=== PATIENT | female | born 1955 | race Caucasian/White ===

== ENCOUNTER → 2016-10-05 | Outpatient (CLI) | payer OTHER ==
[~2016-10-05] VITALS: Ht 167.6 cm; Wt 81.8 kg
[~2016-10-05] MED LIST: CITRACAL + D C1 EACH PO; CRESTOR20 MG PO; CRESTOR40 MG PO; DULCOLAX10 MG PR; DULERA 100 MCG/13 GM IH; FISH OIL300 MG PO; FOLTX TABLET1 EAC1 PO; LO-DOSE ASPIRIN81 M2 PO; LOPRESSOR25 MG PO; LOVENOX40 MG/0.4 SC; Milk Of Magnesia,MOM PO; OxyCONTIN PO; PROAIR HFA8.5 GM IH; PriLOSEC PO; Proventil,Ventolin H IH; SENOKOT S,PE1 TABLET PO; VITAMIN C500 M1 PO; WOMEN'S DAILY1 EAC4 PO; oxyCODONE PO
== END | disposition home or self-care (01) ==
LOC: AMB 11:30
PROC: 0DBE8ZZ Excision of Large Intestine, Via Natural or Artificial Opening Endoscopic (ICD-10-PCS; principal; 2016-10-05)
DX: Z12.11 Encounter for screening for malignant neoplasm of colon (principal); K57.90 Diverticulosis of intestine, part unspecified, without perforation or abscess without bleeding; D12.2 Benign neoplasm of ascending colon; D12.3 Benign neoplasm of transverse colon; D12.4 Benign neoplasm of descending colon; K64.9 Unspecified hemorrhoids; J45.909 Unspecified asthma, uncomplicated; E78.00 Pure hypercholesterolemia, unspecified; Z79.82 Long term (current) use of aspirin
CPT/HCPCS: 88305; B4087; J2250; J3010